=== PATIENT | female | born 2005 | race Two or more races ===

== ENCOUNTER 2025-05-28 01:32 | Emergency (ER) | payer MEDICAID, OTHER ==
[~2025-05-28] VITALS: Ht 165.1 cm; Wt 47.0 kg
[2025-05-28 01:34] VITALS: BP 126/78; PULSE 63; RESP 16; TEMP 97.7; O2SAT 95
== END 2025-05-28 03:39 | disposition left against medical advice (07) ==
LOC: ER 01:32
DX: R11.2 Nausea with vomiting, unspecified (principal); Z53.21 Procedure and treatment not carried out due to patient leaving prior to being seen by health care provider